=== PATIENT | female | born 1985 | race Caucasian/White ===

== ENCOUNTER 2023-09-05 15:31 | Emergency (ER) | payer BC ==
[2023-09-05 16:28] VITALS: BP 122/59; PULSE 70; RESP 18; TEMP 98; O2SAT 98
--- NOTE | 2023-09-05 16:37 | ERPHSYRPT ---
- History of Present Illness Time Seen by Provider: 09/05/23 15:36 Source: patient, family Exam Limitations: no limitations Patient Subjective Stated Complaint: C/O severe headache that started a few hours ago but has resolved now. States pain started in her right jew while in [employer] and then spread into the top of her head; pain was so severe she was almost crying. Denies numbness, tingling or vision changes; drove self home from shopping with headache. Triage Nursing Assessment: Patient is alert and oriented. No active pain during assessment. NO SOB. A dry, occassional cough present. OLMEDO WNL. Skin tone normal. Denies any falls or injury to head. Physician History: 37-year-old female with history of anxiety/depression presented in the ER with chief complaint of right-sided headache sudden onset while she was shopping around earlier today. Patient reported it was on the right temporal moderate to severe sharp nature radiating/involving the whole right side without any focal numbness tingling weakness. She denies any visual disturbance. No associated nausea or vomiting. No difficulty movements of neck. Denies any known sick contact. No URI symptoms. She went home, took ibuprofen and her headache is completely resolved now. She is asymptomatic. She has nonfocal neuroexam. No nuchal rigidity. Lungs bilateral clear to auscultation. Patient does report having going through a lot of stress lately. I do not think patient needs imaging or any workup with her symptoms completely resolved. Recommended outpatient follow-up. I have discussed the signs symptoms of worsening needing return to ER which patient seems understanding. Allergies/Adverse Reactions: Penicillins Allergy (Verified 09/05/23 16:14) clarithromycin [From Biaxin] Adverse Reaction (Verified 09/05/23 16:14) Home Medications: Bupropion HCl 150 mg Sr [Wellbutrin SR 150 MG] 1 tab PO DAILY 09/05/23 [History] Fluoxetine HCl 20 mg [Prozac 20 MG] 1 tab PO DAILY 09/05/23 [History] Hx Tetanus, Diphtheria Vaccination/Date Given: Yes Hx Influenza Vaccination/Date Given: No Hx Pneumococcal Vaccination/Date Given: No Immunizations Up to Date: Yes Travel Risk - International Travel Have you traveled outside of the country in past 3 weeks: No - Coronavirus Screening Are you exhibiting any of the following symptoms?: Yes Symptoms: Cough: New Onset, Headaches/Body Aches/Fatigue Close contact with a COVID-19 positive Pt in past 14-21 Days: No - Vaccine Status Have you recieved a Covid-19 vaccination: No - Review of Systems Constitutional: No Symptoms Eyes: No Symptoms Ears, Nose, & Throat: No Symptoms Respiratory: No Symptoms Cardiac: No Symptoms Abdominal/Gastrointestinal: No Symptoms Genitourinary Symptoms: No Symptoms Musculoskeletal: No Symptoms Skin: No Symptoms Neurological: Headache Psychological: Anxiety Endocrine: No Symptoms Hematologic/Lymphatic: No Symptoms Immunological/Allergic: No Symptoms - Past Medical History Pertinent Past Medical History: Yes Neurological History: Other Psycho-Social History: Anxiety, Depression Other Medical History: PCOS, PMDD, febrile seizures as a child - Past Surgical History Past Surgical History: Yes Female Surgical History: Tubal Ligation - Social History Smoking Status: Never smoker Exposure to second hand smoke: No Drug Use: none Patient Lives Alone: No - Female History Hx Last Menstrual Period: NOW Hx Now: No - Nursing Vital Signs Nursing Vital Signs: Initial Vital Signs Temperature 98 F 09/05/23 16:16 Pulse Rate 70 09/05/23 16:16 Respiratory Rate 18 09/05/23 16:16 Blood Pressure 122/59 09/05/23 16:16 O2 Sat by Pulse Oximetry 98 09/05/23 16:16 Pain Scale Pain Intensity 0 - Physical Exam General Appearance: no apparent distress, alert, anxiety Eye Exam: PERRL/EOMI, eyes nml inspection Ears, Nose, Throat Exam: normal ENT inspection, TMs normal, pharynx normal, moist mucous membranes Neck Exam: normal inspection, non-tender, supple, full range of motion Respiratory Exam: normal breath sounds, lungs clear Cardiovascular Exam: regular rate/rhythm, normal heart sounds Gastrointestinal/Abdominal Exam: soft, normal bowel sounds, No tenderness Back Exam: normal inspection, normal range of motion Extremity Exam: normal inspection, normal range of motion Mental Status Exam: alert, oriented x 3, cooperative bilingual medical assistant Exam: normal hearing, normal speech, PERRL Coordination/Gait Exam: normal finger to nose, normal gait, normal cerebellar function, negative Romberg's sign Motor/Sensory Exam: no motor deficit, no sensory deficit, no pronator drift, negative Babinski's sign DTR Exam: bicep (R): 2+, bicep (L): 2+, knee (R): 2+, knee (L): 2+ Skin Exam: normal color SpO2 Interpretation: normal SpO2: 98 O2 Delivery: Room Air - Progress Progress: improved Air Movement: good Progress Note: 09/05/23 16:34 37-year-old female with history of anxiety/depression presented in the ER with chief complaint of right-sided headache sudden onset while she was shopping around earlier today. Patient reported it was on the right temporal moderate to severe sharp nature radiating/involving the whole right side without any focal numbness tingling weakness. She denies any visual disturbance. No associated nausea or vomiting. No difficulty movements of neck. Denies any known sick contact. No URI symptoms. She went home, took ibuprofen and her headache is completely resolved now. She is asymptomatic. She has nonfocal neuroexam. No nuchal rigidity. Lungs bilateral clear to auscultation. Patient does report having going through a lot of stress lately. I do not think patient needs imaging or any workup with her symptoms completely resolved. Recommended outpatient follow-up. I have discussed the signs symptoms of worsening needing return to ER which patient seems understanding. Blood Culture(s) Obtained: No Antibiotics given: No Counseled pt/family regarding: diagnosis, need for follow-up Medical Desision Making - Independent Historian Additional History obtained from: Spouse - Departure Departure Disposition: Home Clinical Impression: Acute nonintractable headache Condition: Stable Critical Care Time: No Referrals: ANDRES FUNK MD [ACTIVE STAFF] - Follow up with PCP 2 days Instructions: Headache, Adult (DC) Additional Instructions: Take Tylenol as needed. Follow-up with primary care for reevaluation. Return to ER for intractable headache, visual disturbance, numbness tingling focal weakness, dizziness or lightheadedness etc.
== END 2023-09-05 16:45 | disposition home or self-care (01) ==
LOC: ED 15:31
DX: R51.9 Headache, unspecified (principal); Z79.899 Other long term (current) drug therapy; Z28.310 Unvaccinated for COVID-19
CPT/HCPCS: 99281

== ENCOUNTER 2024-08-23 11:58 | Emergency (ER) | payer BC, OTHER ==
[2024-08-23 12:10] VITALS: TEMP 97.8; O2SAT 100
[2024-08-23] MEDS ORDERED: Adacel Vial IM ONE (12:36)
[2024-08-23] MEDS ORDERED: ENGERIX-B 10 MCG PED: INSURANCE IM ONE (12:36)
--- NOTE | 2024-08-23 12:38 | ERPHSYRPT ---
- History of Present Illness Time Seen by Provider: 08/23/24 12:35 Source: patient Exam Limitations: no limitations Patient Subjective Stated Complaint: pt was giving a celestone injection to a pt in [facility] when the pt jerked her hand causing pt to stick needle in her left thumb pad of finger Triage Nursing Assessment: Pt walked over from [facility], vitals wnl, denies pain, pulses normal, skin n/w/d, some bruising to the pad of the left thumb, no bleeding, initially cleaned with alcohol and then soap and water, doesn't appear to be in any distress Physician History: 38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 Patient injected Celestone to the patient. Patient accidentally moved and caused our patient to impaled herself with a hollow bore needle. A chart review was conducted at our patient's place of employment. No HIV or hepatitis risk factors observed. Patient received a Celestone was notified and advised to return for further testing. After discussion our patient elected to avoid HIV postexposure prophylaxis. Hepatitis Ig and vaccine administered. The left thumb was observed. No active bleeding. There was a small area where the needlestick occurred observed. Otherwise asymptomatic no other injuries reported. Patient resting comfortably. She voices no other complaints or concerns at this time. No other injuries reported. Portions of this note were created with voice recognition technology. There may be grammatical, spelling, punctuation or sound alike errors Timing/Duration: today Severity: mild Modifying Factors: Improves With: nothing Associated Symptoms: denies symptoms Allergies/Adverse Reactions: Penicillins Allergy (Verified 08/23/24 12:11) clarithromycin [From Biaxin] Adverse Reaction (Verified 08/23/24 12:11) Home Medications: Bupropion HCl 150 mg Sr [Wellbutrin SR 150 MG] 300 mg PO DAILY 09/05/23 [History] Fluoxetine HCl 20 mg [Prozac 20 MG] 20 mg PO DAILY 09/05/23 [History] Lisdexamfetamine Dimesylate [Vyvanse] 70 mg PO DAILY 08/23/24 [History] Hx Tetanus, Diphtheria Vaccination/Date Given: Yes Hx Influenza Vaccination/Date Given: No Hx Pneumococcal Vaccination/Date Given: No Travel Risk - International Travel Have you traveled outside of the country in past 3 weeks: No - Emerging Infectious Disease Are you exhibiting symptoms associated with any current EIDs: No - Review of Systems Constitutional: No Symptoms, No Fever, No Chills Eyes: No Symptoms Ears, Nose, & Throat: No Symptoms Respiratory: No Symptoms, No Cough, No Dyspnea Cardiac: No Symptoms, No Chest Pain, No Edema, No Syncope Abdominal/Gastrointestinal: No Symptoms, No Abdominal Pain, No Nausea, No Vomiting, No Diarrhea Genitourinary Symptoms: No Symptoms, No Dysuria Musculoskeletal: No Symptoms, No Back Pain, No Neck Pain Skin: No Symptoms, No Rash Neurological: No Symptoms, No Dizziness, No Focal Weakness, No Sensory Changes Psychological: No Symptoms Endocrine: No Symptoms Hematologic/Lymphatic: No Symptoms Immunological/Allergic: No Symptoms All Other Systems: Reviewed and Negative - Past Medical History Pertinent Past Medical History: Yes Neurological History: Other Psycho-Social History: Anxiety, Depression Other Medical History: PCOS, PMDD, febrile seizures as a child - Past Surgical History Past Surgical History: Yes Female Surgical History: Tubal Ligation - Female History Hx Last Menstrual Period: 08/21/2024 Hx Now: No (tubal) - Social History Smoking Status: Never smoker Exposure to second hand smoke: No Drug Use: none Patient Lives Alone: No - Social Determinants of Health Will the patient participate in the screening: Yes Do you worry about a steady place to live?: No Do you have any problems with any of the following?: No known problems In the past 12 months,have you had to go without utilities?: No Transportation Issues: No Has anyone in your support network made you feel unsafe?: No Have you or anyone in your house had to go without enough: No - Nursing Vital Signs Nursing Vital Signs: Initial Vital Signs Temperature 97.8 F 08/23/24 12:04 Pulse Rate 80 08/23/24 12:04 Blood Pressure 131/61 08/23/24 12:04 O2 Sat by Pulse Oximetry 100 08/23/24 12:04 Pain Scale Pain Intensity 0 - Physical Exam General Appearance: no apparent distress, alert Eye Exam: PERRL/EOMI, eyes nml inspection Ears, Nose, Throat Exam: normal ENT inspection, moist mucous membranes Neck Exam: normal inspection, full range of motion Respiratory Exam: normal breath sounds, airway intact, No respiratory distress Cardiovascular Exam: regular rate/rhythm, normal peripheral pulses Gastrointestinal/Abdomen Exam: soft, normal bowel sounds, No tenderness, No mass Back Exam: normal inspection, normal range of motion, No CVA tenderness, No vertebral tenderness Extremity Exam: normal inspection, normal range of motion, pelvis stable Neurologic Exam: alert, oriented x 3, cooperative, normal mood/affect, sensation nml, No motor deficits Skin Exam: normal color, warm, dry, No rash Lymphatic Exam: No adenopathy SpO2 Interpretation: normal SpO2: 100 O2 Delivery: Room Air - Course Nursing assessment & vital signs reviewed: Yes Ordered Tests: Active Orders 24 hr Category Date Time Status Wound Care STAT Care 08/23/24 12:26 Active Medication Summary Discontinued Medications Generic Name Dose Route Start Last Admin Trade Name Michelle PRN Reason Stop Dose Admin Diphtheria/Tetanus/Acell Pertussis 0.5 ml 08/23/24 12:26 08/23/24 12:51 Tdap --Diph,Pertuss(Acell),Tet Vac/Pf 0.5 Ml Vial IM 08/23/24 12:27 0.5 ml .ONCE ONE Administration Diphtheria/Tetanus/Acell Pertussis Confirm 08/23/24 12:36 Tdap --Diph,Pertuss(Acell),Tet Vac/Pf 0.5 Ml Vial Administered 08/23/24 12:37 Dose 0.5 ml IM .STK-MED ONE Hepatitis B Immune Globulin 5.5 ml 08/23/24 12:26 08/23/24 12:48 Hepatitis B Immune Globulin 5 Ml Vial 0.06 ml/kg (5.5 ml) 08/23/24 12:27 5.5 ml IM Administration ONCE ONE Hepatitis B Vaccine 20 mcg 08/23/24 12:26 08/23/24 12:48 Hepatitis B Ped Vaccine 10 Mcg Vial: Insurance IM 08/23/24 12:27 20 mcg .ONCE ONE Administration Hepatitis B Vaccine Confirm 08/23/24 12:36 Hepatitis B Ped Vaccine 10 Mcg Vial: Insurance Administered 08/23/24 12:37 Dose 20 mcg IM .STK-MED ONE - Progress Progress: improved Progress Note: Patient received vaccine and immunoglobulin for hepatitis B. She declined HIV prophylaxis. Tetanus updated. Associated paperwork completed. Patient asymptomatic. Patient discharged. No indication for further workup. Patient agrees to follow-up with occupational health. She voices no other complaints or concerns at this time. Portions of this note were created with voice recognition technology. There may be grammatical, spelling, punctuation or sound alike errors Complexity of problem addressed is moderate acute complicated no critical care time complexity of data reviewed and analyzed is none. No specialized testing ordered. Diagnosis made based on history and physical exam. Risk of complication and or risk of morbidity/mortality of patient management is low. Vital stable. Time spent to discharge patient is approximately 10 minutes. Plan of care established for shared decision making. No social determinants of health present to impede follow-up. Portions of this note were created with voice recognition technology. There may be grammatical, spelling, punctuation or sound alike errors 08/23/24 13:09 08/23/24 13:10 Counseled pt/family regarding: lab results, diagnosis, need for follow-up - Departure Departure Disposition: Home Clinical Impression: Needlestick injury accident, Postexposure prophylaxis Condition: Stable Critical Care Time: No Additional Instructions: Discharge/Care Plan JOANNE TAVAREZ was seen on 08/23/24 in the Emergency Room. The patient was counseled regarding Diagnosis,Lab results, Imaging studies, need for follow up and when to return to the Emergency Room. Prescriptions given: Discharge Note I have spoken with the patient and/or caregivers. I have explained the patient's condition, diagnosis and treatment plan based on the information available to me at this time. I have answered the patient's and/or caregiver's questions and addressed any concerns. The patient and/or caregivers have as good understanding of the patient's diagnosis, condition and treatment plan as can be expected at this point. The vital signs have been stable. The patient's condition is stable and appropriate for discharge from the emergency department. The patient will pursue further outpatient evaluation with the primary care physician or other designated or consulting physician as outlined in the discharge instructions. The patient and/or caregivers are agreeable to this plan of care and follow-up instructions have been explained in detail. The patient and/or caregivers have received these instruction. The patient/and or caregivers are aware that any significant change in condition or worsening of symptoms should prompt an immediate return to this or the closest emergency department or call 911.
[2024-08-23] MEDS: ENGERIX-B 10 MCG PED: INSURANCE IM ONE (12:48)
[2024-08-23] MEDS: Nabi-Hb 5 ML IM ONE (12:48)
[2024-08-23] MEDS: Adacel Vial IM ONE (12:51)
[2024-08-23 13:02] VITALS: BP 128/65; PULSE 78
[2024-08-24 07:29] LABS: HBsAg Screen Negative (Negative); HIV Screen 4th Generation wRfx Non Reactive (Non Reactive); Hep B Surface Ab, Quant 6.5 mIU/mL (Immunity>10); Hep C Virus Ab Non Reactive (Non Reactive)
== END 2024-08-23 13:10 | disposition home or self-care (01) ==
LOC: ER - EH 11:58
DX: S61.032A Puncture wound without foreign body of left thumb without damage to nail, initial encounter (principal); W46.1XXA Contact with contaminated hypodermic needle, initial encounter; Y92.532 Urgent care center as the place of occurrence of the external cause; Y99.0 Civilian activity done for income or pay; Z20.5 Contact with and (suspected) exposure to viral hepatitis; Z79.899 Other long term (current) drug therapy; Z23 Encounter for immunization
CPT/HCPCS: 36415; 86317; 87340; 87389; 90471; 96372; 99284; G0472; 86803; 90715; 90744; 99283